=== PATIENT | female | born 1950 | race Caucasian/White ===

== ENCOUNTER 2021-11-17 08:55 | Outpatient (CLI) | payer MEDICARE, BC, SELFPAY ==
[2021-11-17 13:14] LABS: Chloride* 104 mmol/L (96-114); Sodium* 141 mmol/L (135-149)
[2021-11-17 13:15] LABS: Potassium* 4.2 mmol/L (3.6-5.1)
[2021-11-17 13:17] LABS: Blood Urea Nitrogen* 17 mg/dL (7-30); Carbon Dioxide* 28 mmol/L (20-32); Creatinine* 0.6 mg/dL (0.5-1.5); Estimated Glomerular Filt Rate 95 ml/min
[2021-11-17 13:18] LABS: Calcium* 9.7 mg/dL (8.4-10.6); Glucose* 102 mg/dL (60-115)
== END 2021-11-17 08:56 | disposition home or self-care (01) ==
LOC: LONREF 08:56
PROVIDERS: PCP Family Medicine; Visit Provider Family Medicine
DX: Z00.00 Encounter for general adult medical examination without abnormal findings (principal); M16.11 Unilateral primary osteoarthritis, right hip; Z13.9 Encounter for screening, unspecified
CPT/HCPCS: 80048